=== PATIENT | female | born 1930 | race Caucasian/White ===

== ENCOUNTER 2016-07-22 08:07 | Emergency (ER) | payer MEDICARE, BC ==
[~2016-07-22 08:07] MED LIST: ADVIL200 M3 PO; AUGMENTIN875 MG PO; AZOR 5/20 MG TA1 TAB PO; HYDROCHLOROTH12.5 MG PO; ZYRTEC PO
[2016-07-22 08:36] LABS: URINE SOURCE CLEAN CATCH
[2016-07-22 08:39] LABS: BASOPHIL# 0.1 X10e3 (0-0.3); BASOPHIL% 0.6 % (0-2.5); EOSINOPHIL% 0.4 % (0.0-7.0); HEMATOCRIT 40.3 % (35.0-45.0); LYMPHOCYTE# 1.6 X10e3 (1.0-3.5); LYMPHOCYTE% 14.6 % (17.0-45.0); MEAN CELL VOLUME 81.4 FL (83-96); MEAN CORPUSCULAR HEMOGLOBIN 26.3 PG (28-34); MEAN CORPUSCULAR HGB CONC 32.3 g/dL (30-36); MEAN PLATELET VOLUME 7.3 FL (6.5-11.5); MONOCYTE# 0.6 X10e3 (0-1.0); MONOCYTE% 5.8 % (3.0-12.0); NEUTROPHIL# 8.6 X10e3 (1.5-7.1); NEUTROPHIL% 78.6 % (40-75); PLATELET COUNT 209 X10e3 (140-420); RED BLOOD COUNT 4.96 X10e (3.90-5.30); RED CELL DISTRIBUTION WIDTH 14.1 % (11.0-15.5); WHITE BLOOD COUNT 10.9 X10e3 (4.0-10.5)
[2016-07-22 08:40] LABS: DIFF IND NO
[2016-07-22 08:47] LABS: URINE APPEARANCE TURBID; URINE BILIRUBIN NEG (NEG); URINE BLOOD 2+ (NEG); URINE COLOR YELLOW; URINE GLUCOSE NEG (NEG); URINE KETONE NEG (NEG); URINE LEUKOCYTE ESTERASE 3+ (NEG); URINE NITRATE NEG (NEG); URINE PROTEIN TRACE (NEG); URINE SPECIFIC GRAVITY 1.011 (1.003-1.035); URINE UROBILINOGEN 0.2 MG/DL (NEG)
[2016-07-22 08:59] LABS: CULTURE INDICATED? YES; URBCS1 AUWI 25-50 /[HPF] (0-2); URINE BACTERIA AUWI 4+ (NEGATIVE); URINE SQUAMOUS EPITHELIAL CELL NONE SEEN /[HPF]; UWBCS1 AUWI INNUM (0-5)
[2016-07-22 09:04] LABS: ALBUMIN SERUM 4.2 g/dL (3.5-5.0); BILIRUBIN,TOTAL 0.8 mg/dL (0.2-2.0); BUN/CREATININE RATIO 21.25; CALCIUM SERUM 9.1 mg/dL (8.4-10.2); CREATININE SERUM 0.8 mg/dL (0.6-1.4); GLOM FILT RATE Estimated 67.8 mL/min (>60); POTASSIUM 4.1 mmol/L (3.5-5.1); PROTEIN TOTAL SERUM 6.6 g/dL (6.0-8.3)
== END 2016-07-22 10:12 | disposition home or self-care (01) ==
LOC: CED 08:07
PROVIDERS: Nurse Practitioner
DX: N76.0 Acute vaginitis (principal); I10 Essential (primary) hypertension
CPT/HCPCS: 36415; 80053; 81003; 85025; 87086; 87088; 87186; 99283